=== PATIENT | male | born 1960 | race Caucasian/White ===

== ENCOUNTER 2019-02-13 06:45 | Day surgery (SDC) | payer MEDICAID ==
[~2019-02-13 06:45] MED LIST: Tamsulosin 0.4 MG Cap.ER PO SCH
[2019-02-13] MEDS ORDERED: Dextrose 5%-Lactated Ringers 1,000 ML IV SCH (07:00)
[2019-02-13] MEDS ORDERED: Acetaminophen 500 MG Tab PO ONE (07:00)
[2019-02-13] MEDS ORDERED: Albuterol/Ipratropium 3.0-0.5 MG/3 ML Neb Soln NEB ONE (07:05)
[2019-02-13] MEDS ORDERED: ceFAZolin 2 GM in Premix Bag 1 BAG IV ONE (07:30)
[2019-02-13] MEDS ORDERED: fentaNYL 100 MCG/2 ML SDV ONE (07:35)
[2019-02-13] MEDS ORDERED: Midazolam 1 MG/ML 2 ML SDV ONE (07:35)
[2019-02-13] MEDS ORDERED: Propofol 200 MG/20 ML SDV ONE (07:35)
[2019-02-13] MEDS ORDERED: Sodium Chloride 0.9% 500 ML IV ONE (07:50)
[2019-02-13] MEDS ORDERED: Meropenem 500 MG SDV ONE (08:51)
[2019-02-13] MEDS ORDERED: Sodium Chloride 0.9% 250 ML IV SCH (10:15)
[2019-02-13] MEDS ORDERED: diphenhydrAMINE 50 MG/ML SDV IV PRN (10:16)
[2019-02-13] MEDS ORDERED: Hydrocortisone Sodium Succinate 100 MG/2 ML SDV IV PRN (10:16)
[2019-02-13] MEDS ORDERED: Famotidine 20 MG/2 ML SDV IV PRN (10:16)
[2019-02-13 11:05] VITALS: BP 152/75; PULSE 59
[2019-02-13] MEDS ORDERED: HYDROmorphone 2 MG Tab PO ONE (11:33)
[2019-02-13] MEDS ORDERED: Tamsulosin 0.4 MG Cap.ER PO STA (13:42)
--- NOTE | 2019-02-19 10:39 | OR ---
DATE OF PROCEDURE: 02/13/2019 SURGEON: Pawan Merida MD PREOPERATIVE DIAGNOSIS: Chronically excoriated area of redundant skin, upper right thigh. POSTOPERATIVE DIAGNOSIS: Chronically excoriated area of redundant skin, upper right thigh. OPERATIVE PROCEDURE: Excision of chronically excoriated and ulcerated skin in the right upper thigh with layered closure. ANESTHESIA: General. INDICATION FOR PROCEDURE: A 58-year-old status post Wayne-en-Y gastric bypass many years ago who has problems with area of redundant skin on his medial uppermost right thigh, previously had a similar area excised on the left. This was chronically excoriated and sometimes ulcerated, and given this was to be excised. Potential risks including bleeding and infection were discussed, and the patient wishes to proceed. DETAILS OF PROCEDURE: The patient was taken to the operating room and placed in a supine position. After general endotracheal anesthesia was induced, he was frog-legged with the right leg and that area then prepped and draped. The area of the excision was then dealt with a long ellipse. The entire area of the excision was 21 cm, and after the initial elliptical incisions were made, this was carried down through the skin and subcutaneous tissue, and down to the level of the fascia. plane just superficial to the saphenous vein in terms of the depth of excision. Once the entire area was removed, hemostasis was judged to be satisfactory and the wound was closed with 2 layers of 3-0 and 4- 0 Vicryl stitch deep and then zenaida for the skin. Dressing was applied. There were no evident complications. Pawan Merida MD /[id number]
== END 2019-02-13 15:09 | disposition home or self-care (01) ==
LOC: JP.SDS 06:45
PROVIDERS: ATTEND Surgery
DX: L82.1 Other seborrheic keratosis (principal); M79.89 Other specified soft tissue disorders; L98.7 Excessive and redundant skin and subcutaneous tissue; E55.9 Vitamin D deficiency, unspecified; Z98.84 Bariatric surgery status; Z88.4 Allergy status to anesthetic agent; Z88.5 Allergy status to narcotic agent
CPT/HCPCS: 11406; 12036; 51798; A9270; J0690; J2020; J2185; J2250; J2704; J3010; J7030; J7050; J7121; Q0138; 88305; 88312; 88341; 88342; J7620-GY

== ENCOUNTER → 2023-01-13 | Day surgery (SDC) | payer MEDICAID ==
[~2023-01-13] MED LIST changes: +Glucagon,Human Recombinant 1 MG Vial IV ONE; +Midazolam 1 MG/ML 2 ML SDV ONE; +Ondansetron 4 MG/2 ML SDV IVPUSH ONE; +Propofol 200 MG/20 ML SDV ONE; +Sodium Chloride 0.9% 1,000 ML IV SCH; -Tamsulosin 0.4 MG Cap.ER PO SCH; +fentaNYL 50 MCG/ML SDV ONE
[2023-01-13 09:40] LABS: BASOPHILS PERCENT AUTO 0.3 % (0.1-1.3); EOSINOPHILS ABSOLUTE AUTO 0.08 K/uL (0.00-0.40); EOSINOPHILS PERCENT AUTO 1.3 % (0.0-5.4); HEMATOCRIT 48.1 % (38.4-49.7); HEMOGLOBIN 15.8 g/dL (12.9-16.9); IMMATURE GRAN PERCENT AUTO 0.2 % (0.0-0.7); LYMPHOCYTES ABSOLUTE AUTO 1.02 K/uL (0.8-3.3); MEAN CORPUSCULAR HEMOGLOBIN 29.9 pg (31.6-35.5); MEAN CORPUSCULAR HGB CONC 32.8 g/dL (31.6-35.5); MEAN CORPUSCULAR VOLUME 90.9 fL (81.4-99.0); MONOCYTES ABSOLUTE AUTO 0.59 K/uL (0.20-0.90); MONOCYTES PERCENT AUTO 9.8 % (3.3-12.6); NEUTROPHILS ABSOLUTE AUTO 4.29 K/uL (1.0-7.6); NEUTROPHILS PERCENT AUTO 71.4 % (40.0-78.1); PLATELET COUNT,PLT 218 K/uL (130-375); RED BLOOD CELL COUNT 5.29 M/uL (4.14-5.76)
[2023-01-13 09:42] LABS: BASOPHILS ABSOLUTE AUTO 0.02 K/uL (0.00-0.10); IMMATURE GRAN ABSOLUTE AUTO 0.01 K/uL (0.00-0.23)
[2023-01-13 10:03] LABS: A/G RATIO 1.5 (1.2-2.2); ALANINE AMINOTRANSFERASE,ALT 52 U/L (12-78); ALKALINE PHOSPHATASE 100 U/L (46-116); ASPARTATE AMNIOTRANSFERASE,AST 37 U/L (15-37); BILIRUBIN TOTAL 0.7 mg/dL (0.2-1.0); BLOOD UREA NITROGEN,BUN 22 mg/dL (7-18); CALCIUM 8.6 mg/dL (8.5-10.1); CARBON DIOXIDE,CO2 27 mmol/L (21-32); CHLORIDE,CL 104 mmol/L (100-108); ESTIMATED GFR 85 mL/min (>60); GLUCOSE RANDOM 81 mg/dL (74-106); POTASSIUM,K 4.5 mmol/L (3.6-5.2); PROTEIN TOTAL,TP 6.6 g/dL (6.4-8.2); SODIUM,NA 139 mmol/L (140-148); TROPONIN I HIGH SENSITIVITY 10.1 pg/mL (<=60.3)
[2023-01-13 10:11] LABS: ANION GAP 12.5 mmol/L (5.0-14.0)
[2023-01-13 12:50] VITALS: BP 114/63; PULSE 54
== END | disposition home or self-care (01) ==
LOC: JP.ED 08:49 → JP.SDS 11:45 → JP.ED 13:06
PROVIDERS: ATTEND Surgery
DX: K22.2 Esophageal obstruction (principal); E78.00 Pure hypercholesterolemia, unspecified; I10 Essential (primary) hypertension; Z88.1 Allergy status to other antibiotic agents; Z88.4 Allergy status to anesthetic agent; Z88.6 Allergy status to analgesic agent; Z79.899 Other long term (current) drug therapy; M19.90 Unspecified osteoarthritis, unspecified site
CPT/HCPCS: 36415; 71250; 80053; 84484; 85025; 96361; 96374; 96375; 99284; J1610; J2250; J2405; J2704; J3010; J7030

== ENCOUNTER 2023-12-30 09:20 | Day surgery (SDC) | payer MEDICAID ==
[2023-12-30] MEDS ORDERED: fentaNYL 50 MCG/ML SDV ONE (10:49)
[2023-12-30] MEDS ORDERED: Propofol 200 MG/20 ML SDV ONE (10:49)
[2023-12-30] MEDS ORDERED: Midazolam 1 MG/ML 2 ML SDV ONE (10:49)
[2023-12-30 12:46] VITALS: BP 138/83; PULSE 64
== END 2023-12-30 12:45 | disposition home or self-care (01) ==
LOC: JP.ED 09:20 → JP.SDS 11:17
PROVIDERS: ATTEND Surgery
DX: R13.10 Dysphagia, unspecified (principal); T18.108A Unspecified foreign body in esophagus causing other injury, initial encounter; I10 Essential (primary) hypertension; E78.00 Pure hypercholesterolemia, unspecified; K21.9 Gastro-esophageal reflux disease without esophagitis; Z79.82 Long term (current) use of aspirin; Z79.899 Other long term (current) drug therapy
CPT/HCPCS: 43249; 99284; C1726; J2250; J2704; J3010